=== PATIENT | male | born 1990 | race African-American/Black ===

== ENCOUNTER 2017-11-19 15:52 | Emergency (ER) | payer OTHER ==
[2017-11-19 18:24] VITALS: BP 124/82
--- NOTE | 2017-11-19 18:58 | UC ---
UC General HPI - HPI Summary HPI Summary: Wants to be screened for STDs, exposed several days ago to two sexual partners with possible STIs , he states 2 days ago started with penile discharge . Denies fever or chills. - History of Current Complaint Chief Complaint: [facility] Stated Complaint: WANTS STD TESTING Time Seen by Provider: 11/19/17 18:45 Hx Obtained From: Patient Onset/Duration: Sudden Onset, Lasting Days Onset Severity: Mild Current Severity: Moderate Pain Intensity: 8 - Allergy/Home Medications Allergies/Adverse Reactions: Allergies Allergy/AdvReac Type Severity Reaction Status Date / Time shellfish derived Allergy Severe Anaphylatic Verified 11/19/17 18:26 Shock Home Medications: Home Medications NK [No Home Medications Reported] 11/19/17 [History Confirmed 11/19/17] PMH/Surg Hx/FS Hx/Imm Hx Previously Healthy: Yes Respiratory History: Asthma - Surgical History Surgical History: None - Family History Known Family History: Positive: None - Social History Alcohol Use: Daily Substance Use Type: Marijuana Substance Use Comment - Amount & Last Used: daily Smoking Status (MU): Former Smoker Review of Systems Constitutional: Negative Skin: Negative Eyes: Negative ENT: Negative Respiratory: Negative Cardiovascular: Negative Genitourinary: Vaginal/Penile Discharge Motor: Negative Neurovascular: Negative Musculoskeletal: Negative All Other Systems Reviewed And Are Negative: Yes Physical Exam Triage Information Reviewed: Yes Appearance: Well-Appearing, No Pain Distress, Well-Nourished Vital Signs: Initial Vital Signs Temp 99.6 F 11/19/17 18:17 Pulse 88 11/19/17 18:17 Resp 14 11/19/17 18:17 BP 124/82 11/19/17 18:17 Pulse Ox 100 11/19/17 18:17 Vital Signs Reviewed: Yes Eyes: Positive: Conjunctiva Clear ENT: Positive: Hearing grossly normal Neck: Positive: Supple, Nontender Respiratory: Positive: Chest non-tender Cardiovascular: Positive: Pulses Normal, Brisk Capillary Refill Abdomen Description: Positive: Nontender Male Genital Exam: Positive: Normal Genitalia, No Hernia, Urethral Discharge Skin Exam: Normal Course/Dx - Course Course Of Treatment: history of urethritis which started 2 days ago after unprotected intercourse. Given Azythromycin and ceftriaxone. STI screening collected. Abstain from sexual intercourse for a week and then use protection. Partner notification discussed with patient - Differential Dx - Multi-Symptom Provider Diagnoses: Urethritis. Unprotected intercourse. STI screening Discharge - Sign-Out/Discharge Documenting (check all that apply): Patient Departure - Discharge Plan Condition: Good Disposition: HOME Patient Education Materials: Nonspecific Urethritis in Men (ED), Ceftriaxone ( By injection), Azithromycin (By mouth), Safe Sex (ED), Sexually Transmitted Diseases (ED), Condom Use (ED) Referrals: Blanca Leija MD [Primary Care Provider] - Additional Instructions: please notify your partners about your STI so they can be tested and treated. Please abstain from intercourse for at least 7 days and use protection afterwards. - Billing Disposition and Condition Condition: GOOD Disposition: Home
[2017-11-19] MEDS ORDERED: cefTRIAXone VIAL(*) 250 MG VIAL IM ONE (19:12)
[2017-11-19] MEDS ORDERED: Azithromycin TAB* 250 MG PO ONE (19:13)
[2017-11-19] MEDS ORDERED: Lidocaine 1%* 5 ML VIAL ONE (19:22)
--- NOTE | 2017-11-21 17:25 | UC ---
- Progress Note Progress Note: Pt positive for chlamydia - was treated in the clinic for this. Please let him know Discharge - Sign-Out/Discharge Documenting (check all that apply): Post-Discharge Follow Up All imaging exams completed and their final reports reviewed: No Studies - Discharge Plan Condition: Good Disposition: HOME Patient Education Materials: Azithromycin (By mouth), Ceftriaxone (By injection ), Sexually Transmitted Diseases (ED), Condom Use (ED), Safe Sex (ED), Nonspecific Urethritis in Men (ED) Referrals: Blanca Leija MD [Primary Care Provider] - Additional Instructions: please notify your partners about your STI so they can be tested and treated. Please abstain from intercourse for at least 7 days and use protection afterwards. - Billing Disposition and Condition Condition: GOOD Disposition: Home
== END 2017-11-19 19:32 | disposition home or self-care (01) ==
LOC: UCEAST 15:52
DX: A56.01 Chlamydial cystitis and urethritis (principal); Z87.891 Personal history of nicotine dependence; Z11.3 Encounter for screening for infections with a predominantly sexual mode of transmission
CPT/HCPCS: 87491; 87591; 96372; 99212; A9270-GY; G0463; J0696

== ENCOUNTER 2018-03-06 19:22 | Emergency (ER) | payer OTHER ==
[2018-03-06 20:08] VITALS: BP 116/63
--- NOTE | 2018-03-06 21:01 | UC ---
Lower Extremity/Ankle HPI - HPI Summary HPI Summary: PATIENT REPORTS SOMEONE STEPPED ON HIS LEFT GREAT TOE WHILE PLAYING BASKETBALL 2 YEARS AGO. STATES HE NEVER HAD THIS EVALUATED AND HAS HAD PAIN SINCE THEN. DENIES ANY RECENT/RECURRENT INJURY. . - History of Current Complaint Chief Complaint: UCLowerExtremity Stated Complaint: TOE INJURY Time Seen by Provider: 03/06/18 20:20 Hx Obtained From: Patient Onset/Duration: Sudden Onset - LASTING 2 YEARS Severity Initially: Moderate Severity Currently: Mild Pain Intensity: 3 Pain Scale Used: 0-10 Numeric Aggravating Factor(s): Standing, Ambulation Alleviating Factor(s): Rest Able to Bear Weight: Yes - Allergies/Home Medications Allergies/Adverse Reactions: Allergies Allergy/AdvReac Type Severity Reaction Status Date / Time shellfish derived Allergy Severe Anaphylatic Verified 03/06/18 20:08 Shock PMH/Surg Hx/FS Hx/Imm Hx Respiratory History: Asthma - Surgical History Surgical History: None - Family History Known Family History: Positive: None - Social History Alcohol Use: Occasionally Substance Use Type: None Substance Use Comment - Amount & Last Used: daily Smoking Status (MU): Former Smoker Review of Systems All Other Systems Reviewed And Are Negative: Yes Constitutional: Positive: Negative Skin: Positive: Negative ENT: Positive: Negative Respiratory: Positive: Negative Cardiovascular: Positive: Negative Musculoskeletal: Positive: Arthralgia Physical Exam Triage Information Reviewed: Yes Appearance: Well-Appearing, No Pain Distress, Well-Nourished Vital Signs: Initial Vital Signs Temp 98.6 F 03/06/18 20:05 Pulse 70 03/06/18 20:05 Resp 16 03/06/18 20:05 BP 116/63 03/06/18 20:05 Pulse Ox 100 03/06/18 20:05 Vital Signs Reviewed: Yes Eyes: Positive: Conjunctiva Clear ENT: Positive: Hearing grossly normal Neck: Positive: Supple Respiratory: Positive: No respiratory distress, No accessory muscle use Cardiovascular: Positive: Pulses Normal Abdomen Description: Positive: Soft Musculoskeletal: Positive: ROM Intact, No Edema, Other: - TTP LEFT 1ST METATARSAL. NO ERYTHEMA OR SWELLING Neurological: Positive: Alert Psychological: Positive: Age Appropriate Behavior Skin: Negative: Rashes Lower Extremity Course/Dx - Course Course Of Treatment: XRAYS TODAY DO NOT SHOW ANYTHING ACUTE ON MY INITIAL INTERPRETATION. RADIOLOGY READ PENDING. PATIENT HAS BEEN REFERRED TO ORTHOPEDICS AND PODIATRY FOR FURTHER EVALUATION OF HIS CHRONIC TOE PAIN. - Differential Dx/Diagnosis Provider Diagnosis: Pain of left great toe Discharge - Sign-Out/Discharge Documenting (check all that apply): Patient Departure All imaging exams completed and their final reports reviewed: No - Discharge Plan Condition: Stable Disposition: HOME Patient Education Materials: Metatarsalgia (DC) Referrals: Blanca Leija MD [Primary Care Provider] - Esteban Ross MD [Medical Doctor] - If Needed Additional Instructions: X-RAY TODAY NEGATIVE FOR FRACTURE OR DISLOCATION ON MY INITIAL INTERPRETATION. WE WILL CALL YOU TOMORROW IF THE RADIOLOGY READ DIFFERS. BE SURE TO WEAR SHOES THAT ARE WIDE ENOUGH TO ACCOMMODATE YOUR FOOT. BE SURE IT HAS ADEQUATE SUPPORT. FOLLOW-UP WITH PODIATRY OR ORTHOPEDICS FOR FURTHER EVALUATION OF YOUR CHRONIC TOE PAIN. PODIATRY IN [place] Dr. Martha Hooks [address] [place] [address] [facility] [address] Raymundo Torres [address] Esteban Archuleta. [address] [place] [address] Please call his office at [phone] to make an appointment to be seen Dr. Nolan Ariza. [address] [place] [address] - Billing Disposition and Condition Condition: STABLE Disposition: Home
--- NOTE | 2018-03-07 20:41 | UC ---
- Progress Note Progress Note: PLEASE CALL PT. RADIOLOGY REPORT REVIEWED: 1. NO FRACTURE IS SEEN. 2. SMALL EROSION IN THE DISTAL FIRST METATARSAL SUGGESTING THE POSSIBILITY OF AN INFLAMMATORY ARTHROPATHY. THIS COULD BE CONTRIBUTING TO HIS PAIN. NO CHANGE IN MGMT. FOLLOW-UP ADVISED. Course/Dx - Diagnoses Provider Diagnoses: Pain of left great toe Discharge - Sign-Out/Discharge Documenting (check all that apply): Post-Discharge Follow Up All imaging exams completed and their final reports reviewed: Yes - Discharge Plan Condition: Stable Disposition: HOME Patient Education Materials: Metatarsalgia (DC) Referrals: Blanca Leija MD [Primary Care Provider] - Esteban Ross MD [Medical Doctor] - If Needed Additional Instructions: X-RAY TODAY NEGATIVE FOR FRACTURE OR DISLOCATION ON MY INITIAL INTERPRETATION. WE WILL CALL YOU TOMORROW IF THE RADIOLOGY READ DIFFERS. BE SURE TO WEAR SHOES THAT ARE WIDE ENOUGH TO ACCOMMODATE YOUR FOOT. BE SURE IT HAS ADEQUATE SUPPORT. FOLLOW-UP WITH PODIATRY OR ORTHOPEDICS FOR FURTHER EVALUATION OF YOUR CHRONIC TOE PAIN. PODIATRY IN [place] Dr. Martha Hooks [address] [place] [address] [facility] [address] Raymundo Torres [address] [facility] Dr. Esteban Archuleta. [address] [place] [address] Please call his office at [phone] to make an appointment to be seen Dr. Nolan Ariza. [address] [place] [address] - Billing Disposition and Condition Condition: STABLE Disposition: Home
== END 2018-03-06 20:42 | disposition home or self-care (01) ==
LOC: UCEAST 19:22
DX: M79.675 Pain in left toe(s) (principal); Z91.013 Allergy to seafood; Z87.891 Personal history of nicotine dependence
CPT/HCPCS: 99211; G0463